=== PATIENT | male | born 1965 | race Caucasian/White ===

== ENCOUNTER → 2023-12-14 12:55 | Outpatient (REF) | payer BC, SELFPAY | LOC: MRI 3T 12:55 | PROVIDERS: ATTENDING PHYSICIAN Surgery; FAMILY PHYSICIAN Internal Medicine | DX: C61 Malignant neoplasm of prostate (principal) | CPT/HCPCS: 72197; A9575 ==

== ENCOUNTER → 2025-05-15 10:31 | Outpatient (REF) | payer BC, SELFPAY | LOC: RCS 10:31 | PROVIDERS: ATTENDING PHYSICIAN Internal Medicine | DX: R06.09 Other forms of dyspnea (principal) | CPT/HCPCS: 93017; 93350 ==